=== PATIENT | male | born 1990 | race Two or more races ===

== ENCOUNTER 2024-06-30 18:35 | Emergency (ER) | payer SELFPAY ==
[~2024-06-30] VITALS: Ht 170.2 cm; Wt 77.2 kg
[2024-06-30 18:53] VITALS: TEMP 98.3
[2024-06-30] MEDS: PERTUSS(ACELL),DIPH,TET/PF 0.5 ML SYRINGE [ADULT] IM. ONE (20:01)
[2024-06-30] MEDS: IBUPROFEN 600 MG TABLET PO ONE (20:03)
[2024-06-30] MEDS: AMOX TR/POT CLAV 875 MG/125 MG TABLET PO ONE (20:03)
[2024-06-30] MEDS: BACITRACIN 0.9 GM PACKET OINTMENT TP ONE (20:03)
[2024-06-30] MEDS ORDERED: AMOX-457 PO (20:13)
[2024-06-30] MEDS ORDERED: IBUP-1492 PO (20:13)
[2024-06-30 20:21] VITALS: BP 146/93; PULSE 70; RESP 16; O2SAT 99
== END 2024-06-30 20:30 | disposition home or self-care (01) ==
LOC: EMS 18:35
DX: S31.153A Open bite of abdominal wall, right lower quadrant without penetration into peritoneal cavity, initial encounter (principal); W54.0XXA Bitten by dog, initial encounter; Y93.89 Activity, other specified; Y92.89 Other specified places as the place of occurrence of the external cause; Y99.8 Other external cause status
CPT/HCPCS: 90471; 90715; 99284